=== PATIENT | male | born 1970 | race Caucasian/White ===

== ENCOUNTER 2024-12-16 15:39 | Emergency (ER) | payer MEDICAID, SELFPAY ==
[2024-12-16 15:53] VITALS: BP 184/139; PULSE 96; RESP 18; TEMP 36.6; O2SAT 99
[2024-12-16 16:05] VITALS: BP 184/139; PULSE 96
[2024-12-16] MEDS: cloNIDine HCL 0.1 MG TABLET 0.2 MG PO (16:05)
[2024-12-16 17:07] VITALS: BP 194/124; BP 196/133; PULSE 100; RESP 18; O2SAT 97
--- NOTE | 2024-12-16 18:11 | PD.EDMEDCL ---
ED Medical Clearance RME/HPI General Stated complaint: MEDICAL CLEARANCE Time Seen by Provider: 12/16/24 15:41 Arrival date/time: 12/16/24 15:39 RME / HPI RME / HPI Narrative: 54 year old male with history of hypertension and noncompliance with medication regimen presents to the ED [facility] for medical clearance today. Per officer, SBP at the senior living was 193 and sent here for further management. Patient has no other complaints. States he last took his medications several days ago. Related Information Previous Rx's ?Medication ?Instructions ?Recorded acetaminophen 500 mg tablet 500 mg PO Q6H PRN pain #30 tabs 12/19/19 (Tylenol Extra Strength) cephalexin 500 mg capsule (Keflex) 500 mg PO QID #40 caps 12/19/19 sulfamethoxazole 800 1 tab PO BID #20 tabs 12/19/19 mg-trimethoprim 160 mg tablet (Bactrim DS) cephalexin 500 mg capsule 500 mg PO QID #40 caps 01/28/21 Allergies Allergy/AdvReac Type Severity Reaction Status Date / Time No Known Allergies Allergy Verified 12/19/19 08:05 Review of Systems Review of Systems Narrative Review of Systems: GEN: No fever, no chills, no weight loss EYES: No discharge, no visual changes, no pain HEENT: No ear pain, no congestion, no sore throat PULM: No shortness of breath, no cough, no congestion CV: No chest pain, no dyspnea on exertion, no palpitations GI: No nausea, no vomiting, no diarrhea, no pain, no constipation : No frequency, no urgency, no dysuria MUSC/SKEL: No joint pain, no back pain SKIN: No rash NEURO: No weakness, no headache Past Medical History Past Medical History CARDIAC: Negative Congestive Heart Failure RESPIRATORY: Negative Chronic Obstructive Pulmonary Disease (COPD) GENITOURINARY: Negative Renal Disease ENDOCRINE: Negative Diabetes Mellitus Type 1 or Diabetes Mellitus Type 2 Social History SMOKING STATUS: Current every day smoker ED Exam Narrative Physical exam: GENERAL APPEARANCE:? alert and oriented x 4, well-developed, well-nourished, no acute distress HEENT: normocephalic, atraumatic NECK: supple LUNGS: no respiratory distress, normal effort HEART: good peripheral perfusion ABDOMEN: non distended EXTREMITIES:? atraumatic NEUROLOGIC: awake; alert and oriented x4; cranial nerves II-XII grossly intact PSYCHIATRIC:? appropriate mood and affect SKIN: warm, dry, normal color; no rashes Course Course Course Narrative: 1705: RN reports the patient was cited out and eloped. Quality Measures none Orders Category Date Time Status cloNIDine HCL [Catapres] Med 12/16/24 15:56 Discontinued 0.2 mg PO X1 ONE Vital Signs Vital signs: Vital Signs Temperature 98 F 12/16/24 15:53 Pulse Rate 96 12/16/24 15:53 Respiratory Rate 18 12/16/24 15:53 Blood Pressure 184/139 H 12/16/24 15:53 Pulse Oximetry (%) 99 12/16/24 15:53 Oxygen Delivery Method Room Air 12/16/24 15:53 Pulse ox is 99% on room air which is adequate. Medical Clearance MDM Narrative MDM Narrative:: Marquita Reynoso am scribing for and in the presence of Dr. Solo. Patient data External records reviewed:: [facility] previous records (I reviewed ED visit on 01/28/2021 ) Clinical information provided by:: patient and law enforcement Social determinants that could affect healthcare access:: none Patient has the following chronic illnesses:: HTN How is presenting disease/condition affected by chronic disease/condition?: exacerbated by Evaluation data The following diagnostics were reviewed and interpreted by me:: other (specify) (No diagnostics performed ) Lab and/or radiology exams considered but not ordered:: None Interpretation Summary: N/A Medications / Prescriptions Medications or Prescriptions considered but not ordered:: None Medication administrations:: Medication Administration History Discontinued Medications Clonidine (Clonidine Hcl 0.1 Mg Tablet) 0.2 mg PO X1 ONE Stop: 12/16/24 15:57 Last Admin: 12/16/24 16:05 Dose: 0.2 mg Documented By: See above Consultations Consultation(s) initiated? (list below): No Diagnosis Medical Clearance Differential Diagnosis: other (medical clearance for incarceration, hypertension, hypertensive urgency, hypertensive emergency ) Most likely diagnosis given after review of the tests above:: Hypertension Medical clearance for incarceration Admission Indicated Admission indicated?: not indicated Admission Request Was there a request for admission?: No Disposition Plan Disposition Plan: other (specify) (Patient eloped ) Discharge Plan Plan Patient Disposition: Elopement Prescriptions/Referrals Prescriptions/Med Rec: No Action cephalexin 500 mg capsule 500 mg PO QID Qty: 40 0RF sulfamethoxazole-trimethoprim [Bactrim DS] 800-160 mg tablet 1 tab PO BID Qty: 20 0RF cephalexin [Keflex] 500 mg capsule 500 mg PO QID Qty: 40 0RF acetaminophen [Tylenol Extra Strength] 500 mg tablet 500 mg PO Q6H PRN (Reason: pain) Qty: 30 0RF Referrals: No Primary/Family,Physician [Primary Care Provider] - In 1 week Problem List Clinical Impression: Hypertension, Medical clearance for incarceration Patient/Caregiver Discharge Instructions Print Language: Czech
== END 2024-12-16 17:10 | disposition left against medical advice (07) ==
LOC: SERX 15:57
PROVIDERS: Emergency Provider Emergency Medicine
DX: Z02.89 Encounter for other administrative examinations (principal); I10 Essential (primary) hypertension; Z91.148 Patient's other noncompliance with medication regimen for other reason; F17.210 Nicotine dependence, cigarettes, uncomplicated; Z53.29 Procedure and treatment not carried out because of patient's decision for other reasons
CPT/HCPCS: 99281; A9270